=== PATIENT | male | born 1985 | race Caucasian/White ===

== ENCOUNTER 2021-06-07 13:35 | Emergency (ER) | payer SELFPAY ==
[~2021-06-07] VITALS: Ht 190.5 cm; Wt 111.1 kg
[2021-06-07 15:29] LABS: BASOPHIL 0.4 % (0-2); EOSINOPHIL 0.2 % (0-5); HGB 16.9 g/dl (13.2-18.0); LYMPHOCYTE 3.5 % (15-48); MCH 34.8 pg (25.0-31.0); MCV 96.9 fL (78.0-100.0); MONOCYTE 4.5 % (0-12); NRBC 0; PLT 80 K/uL (150-400); RBC 4.85 M/uL (4.70-6.00); RDW 11.9 % (11.5-14.0); WBC 11.3 K/uL (4.0-10.5)
[2021-06-07 15:30] LABS: NEUTROPHIL 90.9 % (41-80)
[2021-06-07 16:03] LABS: CORONAVIRUS 2019 SARS-COV-2 NEGATIVE (NEGATIVE); INFLUENZA A NAA NEGATIVE (NEGATIVE)
[2021-06-07 16:08] LABS: LACTIC ACID 3.3 mmol/L (0.4-1.9)
[2021-06-07 16:13] LABS: BILIRUBIN 1+ mg/dL (NEGATIVE); BLOOD 2+ Ery/uL (NEGATIVE); CLARITY CLEAR (CLEAR); COLOR YELLOW (YELLOW); GLUCOSE (U) NORMAL (NORMAL); LEUKOCYTES NEGATIVE Leu/uL (NEGATIVE); NITRITE NEGATIVE (NEGATIVE); PROTEIN 2+ mg/dL (NEGATIVE); SPECIFIC GRAVITY >=1.030 (1.001-1.030); pH 6.5 (5.0-9.0)
[2021-06-07 16:15] LABS: ECSTASY (MDMA) POSITIVE (NEGATIVE); MARIJUANA (THC) NEGATIVE (NEGATIVE); METHADONE NEGATIVE (NEGATIVE)
[2021-06-07 16:16] LABS: AMPHETAMINES POSITIVE (NEGATIVE); BARBITURATES NEGATIVE (NEGATIVE); OPIATES NEGATIVE (NEGATIVE); OXYCODONE NEGATIVE (NEGATIVE)
[2021-06-07 16:22] LABS: BACTERIA 1+; MUCOUS TRACE
[2021-06-07 16:42] LABS: ALBUMIN 3.6 g/dL (3.4-5.0); ALKALINE PHOSHATASE 86 U/L (46-116); BILIRUBIN - TOTAL 5.3 mg/dL (0.2-1.0); BUN 12 mg/dL (7-18); CHLORIDE 101 mmol/L (98-107); CO2 (BICARBONATE) 20 mmol/L (21-32); CREATININE 0.97 mg/dL (0.67-1.17); GLOBULIN (CALCULATION) 3.9 g/dL; GLUCOSE 90 mg/dL (74-106); POTASSIUM 3.5 mmol/L (3.5-5.1); TOTAL PROTEIN 7.5 g/dL (6.4-8.2)
[2021-06-07 16:43] LABS: ALT 51 U/L (16-63); AST 111 U/L (15-37)
[2021-06-07 17:39] LABS: INR 1.32 (0.9-1.2); PROTHROMBIN TIME 15.7 SECONDS (11.8-13.4); PTT 29.7 SECONDS (24.4-34.7)
[2021-06-08] MEDS ORDERED: LIBRIUM25 MG PO (03:02)
== END 2021-06-08 03:11 | disposition left against medical advice (07) ==
LOC: FER 13:35
PROVIDERS: Emergency Medicine
DX: F10.139 Alcohol abuse with withdrawal, unspecified (principal); Z20.822 Contact with and (suspected) exposure to COVID-19; Y90.0 Blood alcohol level of less than 20 mg/100 ml
CPT/HCPCS: 36415; 70450; 71045; 80053; 80305; 81001; 82140; 83605; 83880; 84145; 84484; 85025; 85610; 85730; 87088; 93005; G0480; J2060; J2560; J3360; J3411; J3475; J7030; J7120; U0002